=== PATIENT | male | born 1975 | race Two or more races ===

== ENCOUNTER 2018-07-21 20:03 | Emergency (ER) | payer MEDICAID ==
[~2018-07-21] VITALS: Ht 167.6 cm; Wt 66.7 kg
[2018-07-21 20:34] VITALS: BP 123/77
[2018-07-21] MEDS ORDERED: CEFTRIAXONE 500 MG VIAL IM ONE (21:00)
[2018-07-21] MEDS ORDERED: AZITHROMYCIN 250 MG TABLET PO ONE (21:00)
[2018-07-21] MEDS ORDERED: ONDANSETRON 4 MG TAB.RAPDIS SL ONE (21:00)
[2018-07-21] MEDS ORDERED: CEFTRIAXONE 500 MG VIAL ONE (21:10)
[2018-07-21] MEDS ORDERED: AZITHROMYCIN 250 MG TABLET ONE ×2 (21:10→21:38)
[2018-07-21] MEDS ORDERED: ONDANSETRON 4 MG TAB.RAPDIS ONE (21:11)
[2018-07-21] MEDS ORDERED: LIDOCAINE 1% INJ 50 ML MDV IJ ONE (21:12)
[2018-07-21 22:23] LABS: APPEARANCE,URINE Clear (CLEAR); BILIRUBIN,URINE Negative (NEGATIVE); BLOOD, URINE Negative Ery/uL (NEGATIVE); COLOR,URINE Yellow (YELLOW); KETONES,URINE Negative (NEGATIVE); LEUKOCYTE ESTERASE ,URINE Negative (NEGATIVE); NITRITE, URINE Negative (NEGATIVE); PROTEIN,URINE Negative (NEGATIVE); UGLUCOSE Negative (NEGATIVE); UROBILINOGEN,URINE 0.2 EU/dL (0.2)
--- NOTE | 2018-07-21 22:40 | NUR ---
Patient discharged to home in stable condition. Written and verbal after care instructions given. Patient verbalizes understanding of instruction.
== END 2018-07-21 22:43 | disposition home or self-care (01) ==
LOC: ER 20:06
DX: N45.1 Epididymitis (principal)
CPT/HCPCS: 81001; 87491; 87591; 96372; 99283; J0696; J3490; Q0162; 81000-TC

== ENCOUNTER 2020-02-23 19:39 | Emergency (ER) | payer MEDICAID ==
[~2020-02-23] VITALS: Ht 170.2 cm; Wt 65.8 kg
--- NOTE | 2020-02-23 20:15 | NUR ---
BIBS TO ER BED 6. AAOX4. NOT IN RESP DISTRESS. AMBULATORY. CAME IN FOR R EYE PAIN. PER PT, HE WAS CUTTING A PIECE OF CERAMIS TILE AND A PIECE WENT TO HIS EYE. VISUAL ACUITY DONE BOTH: 20/25, RIGHT: 20/25, LEFT:20/25. PROVIDER AT BEDSIDE FOR EVAL.
[2020-02-23] MEDS ORDERED: FLUORESCEIN SODIUM OPHTH 1 EA STRIP ONE (20:16)
[2020-02-23] MEDS ORDERED: IV NS 0.9% 1,000 ML BAG IV ONE (20:30)
--- NOTE | 2020-02-23 20:38 | NUR ---
PT ON [employer]DELL'S LENSE FOR EYE WASH WITH NS 1L.
--- NOTE | 2020-02-23 20:57 | NUR ---
Patient discharged to home in stable condition. Written and verbal after care instructions given. Patient verbalizes understanding of instruction. Pt ambulatory with a steady gait
[2020-02-23 20:59] VITALS: BP 115/63
== END 2020-02-23 20:57 | disposition home or self-care (01) ==
LOC: ER 19:42
DX: H57.11 Ocular pain, right eye (principal); H57.89 Other specified disorders of eye and adnexa
CPT/HCPCS: 99284; J7030

== ENCOUNTER 2021-10-09 20:03 | Inpatient (IN) | payer MEDICAID ==
[~2021-10-09] VITALS: Ht 177.8 cm; Wt 65.8 kg
--- NOTE | 2021-10-09 21:20 | NUR ---
TO ER BED 10. BIBSELF C/O LUQ (RIB PAIN) X2 WEEKS. +CHEST PAIN XMONTHS DIAGNOSED BONE INFLAMMATION BY URGENT CARE. RIB PAIN GETTING WORSE. PAIN IS 4/10 ON P/S. AAOX4. [place] SPEAKING. AMBULATORY. BREATHING IS EVEN AND UNLABORED. CONNECTED TO MONITOR. VSS.
[2021-10-09] MEDS ORDERED: ONDANSETRON HCL/PF 4 MG/2 ML VIAL ONE (22:23)
[2021-10-09] MEDS ORDERED: MORPHINE SULFATE INJ 4 MG/ML DISP.SYRIN ONE (22:23)
[2021-10-09] MEDS ORDERED: MORPHINE SULFATE INJ 2 MG/ML DISP.SYRIN IV ONE (22:30)
[2021-10-09] MEDS ORDERED: IV NS 0.9% 500 ML BAG IV ONE (22:30)
[2021-10-09] MEDS ORDERED: ONDANSETRON HCL/PF 4 MG/2 ML VIAL IVP ONE (22:30)
--- NOTE | 2021-10-09 22:37 | NUR ---
IV LINE ESTABLISHED RAC 18G , BLOOD COLLECTED AND SENT TO LAB
--- NOTE | 2021-10-09 22:37 | NUR ---
URINE COLLECTED AND SENT TO LAB
--- NOTE | 2021-10-09 22:59 | NUR ---
PT TAKEN FOR CT SCAN
[2021-10-09 23:08] LABS: BASOPHILS # (AUTO) 0.1 K/uL (0.0-0.2); BASOPHILS % (AUTO) 0.8 % (0.0-2.0); EOSINOPHILS % (AUTO) 1.9 % (0.0-6.0); HEMATOCRIT 41 % (39-51); HEMOGLOBIN 13.8 g/dL (13.5-17.5); LYMPHOCYTES # (AUTO) 2.2 K/uL (0.8-4.8); LYMPHOCYTES % (AUTO) 29.2 % (20.0-44.0); MEAN CORPUSCULAR HGB CONC 34 g/dl (31.0-36.0); MEAN CORPUSCULAR VOLUME 88 fL (80-96); MONOCYTES # (AUTO) 0.5 K/uL (0.1-1.30); MONOCYTES % (AUTO) 7.2 % (2.0-12.0); NEUTROPHILS # (AUTO) 4.6 K/uL (1.8-8.9); NEUTROPHILS % (AUTO) 60.9 % (43.0-81.0); PLATELET COUNT (AUTO) 263 K/uL (150-450); RED BLOOD CELL COUNT(AUTO) 4.61 MIL/uL (4.5-6.0); WHITE BLOOD COUNT (AUTO) 7.5 K/uL (4.3-11.0)
[2021-10-09 23:28] LABS: ALANINE AMINOTRANSFERASE 42 U/L (12-78); ALBUMIN 4.1 g/dL (3.4-5.0); ALKALINE PHOSPHATASE 74 U/L (46-116); ASPARTATE AMINOTRANSFERASE 27 U/L (15-37); BILIRUBIN,DIRECT 0.1 mg/dL (0.0-0.2); BILIRUBIN,TOTAL 0.3 mg/dL (0.2-1.0); CALCIUM, SERUM 9.1 mg/dL (8.5-10.1); CARBON DIOXIDE 30 mmol/L (21-32); CHLORIDE 103 mmol/L (98-107); CREATININE 0.8 mg/dL (0.6-1.3); GLUCOSE 91 mg/dL (74-106); LIPASE 126 U/L (73-393); POTASSIUM 3.6 mmol/L (3.5-5.1); SODIUM SERUM 139 mmol/L (136-145); TOTAL PROTEIN, SERUM 7.5 g/dL (6.4-8.2); UREA NITROGEN, BLOOD 12 mg/dL (7-18)
--- NOTE | 2021-10-10 00:37 | NUR ---
COVID ANTIGEN SWAB COLLECTED
[2021-10-10] MEDS ORDERED: ZOLPIDEM TARTRATE 5 MG TABLET PO PRN (01:00)
[2021-10-10] MEDS ORDERED: ONDANSETRON HCL/PF 4 MG/2 ML VIAL IVP PRN (01:00)
[2021-10-10] MEDS ORDERED: MAG HYDROX/AL HYDROX/SIMETH 30 ML UDC PO PRN (01:00)
[2021-10-10] MEDS ORDERED: ACETAMINOPHEN 325 MG TABLET PO PRN (01:00)
[2021-10-10] MEDS ORDERED: HYDROMORPHONE 1 MG/1 ML DISP.SYRIN IV PRN (01:00)
[2021-10-10] MEDS ORDERED: MAGNESIUM HYDROXIDE 30 ML UDC PO PRN (01:00)
[2021-10-10] MEDS ORDERED: Z GUARD REMEDY 4 OZ OINT TP PRN (01:00)
--- NOTE | 2021-10-10 01:20 | NUR ---
XRAY AT BEDSIDE
--- NOTE | 2021-10-10 02:11 | NUR ---
PT IS SLEEPING, EASILY AROUSABLE. WILL CONTINUE TO MONITOR
--- NOTE | 2021-10-10 03:54 | NUR ---
MS 324-2
--- NOTE | 2021-10-10 04:21 | NUR ---
REPORT GIVEN TO NENA ÁLVAREZ FOR ROBERT
[2021-10-10 04:45] VITALS: BP 134/73
--- NOTE | 2021-10-10 06:00 | NUR ---
MS RN CLOSING NOTES: PATIENT IN BED, AWAKE, A/O X4. NO S/S OF DISTRESS NOTED. NO COMPLAIN OF PAIN. CALL LIGHT WITHIN REACH. BED ALARM IN LOWEST AND LOCKED POSITION. NPO, PATIENT AWARE. WITH RIGHT NARE NGT CONNECTED TO LOW INTERMITTENT SUCTION, NO OUTPUT.
[2021-10-10] MEDS: IV NS 0.9% 1,000 ML IV PRN (06:09)
--- NOTE | 2021-10-10 07:42 | NUR ---
MS RN OPENING NOTES RECEIVED PATIENT IN BED, AWAKE, A/Ox4, ABLE TO MAKE NEEDS KNOWN. PATIENT ON ROOM AIR; NO S/SX OF RESPIRATORY DISTRESS NOTED. NO COMPLAINS OF PAIN. IV ACCESS IN RAC G #19. PATIENT NPO. NG-TUBE TO THE RIGHT NARIS PRESENT AND IN PLACE; NO OUTPUT AT THIS TIME. SAFETY PRECAUTIONS IN PLACE: BED IN LOW POSITION AND LOCKED, RAILS UP X2, CALL LIGHT WITHIN REACH. WILL CONTINUE TO MONITOR PATIENT.
[2021-10-10 08:00] VITALS: BP 112/62
--- NOTE | 2021-10-10 09:26 | NUR ---
MS RN NOTES MRSA SWAB NARES OBTAINED
--- NOTE | 2021-10-10 18:55 | NUR ---
MS RN CLOSING NOTES PATIENT REMAINS IN BED, AWAKE, A/Ox4, ABLE TO MAKE NEEDS KNOWN. PATIENT ON ROOM AIR; NO S/SX OF RESPIRATORY DISTRESS NOTED DURING THE DAY. NO COMPLAINS OF PAIN. IV ACCESS IN RAC G #18 RUNNING NS @ 90 MLS/HR. PATIENT NPO. NG-TUBE TO THE RIGHT NARIS PRESENT AND IN PLACE; WITH 200 MLS OUTPUT. ALL NEEDS ATTENDED DURING THE DAY. SAFETY PRECAUTIONS IN PLACE: BED IN LOW POSITION AND LOCKED, RAILS UP X2, CALL LIGHT WITHIN REACH. WILL ENDORSE TO CHOCOLATE DIPPER NURSE FOR ROBERT
[2021-10-10 20:00] VITALS: BP 116/71
[2021-10-11] MEDS: IV NS 0.9% 1,000 ML IV PRN (00:49)
--- NOTE | 2021-10-11 05:43 | NUR ---
END OF SHIFT REPORT Patient is A/O x4. Cooperative and compliant with treatment. IVF infusing, NPO. NGT to LCS, output 400 ml brown. On room air, in no respiratory distress. No c/o abdominal pain, denies N/V. Afebrile during the shift. Independent with mobility.
[2021-10-11 06:37] LABS: BASOPHILS % (AUTO) 0.4 % (0.0-2.0); EOSINOPHILS % (AUTO) 3.4 % (0.0-6.0); HEMATOCRIT 39 % (39-51); HEMOGLOBIN 13.4 g/dL (13.5-17.5); LYMPHOCYTES # (AUTO) 1.4 K/uL (0.8-4.8); LYMPHOCYTES % (AUTO) 17.7 % (20.0-44.0); MEAN CORPUSCULAR HGB CONC 34 g/dl (31.0-36.0); MEAN CORPUSCULAR VOLUME 89 fL (80-96); MONOCYTES # (AUTO) 0.6 K/uL (0.1-1.30); NEUTROPHILS # (AUTO) 5.6 K/uL (1.8-8.9); NEUTROPHILS % (AUTO) 70.5 % (43.0-81.0); PLATELET COUNT (AUTO) 234 K/uL (150-450); RED BLOOD CELL COUNT(AUTO) 4.44 MIL/uL (4.5-6.0); WHITE BLOOD COUNT (AUTO) 7.9 K/uL (4.3-11.0)
[2021-10-11 06:47] LABS: CALCIUM, SERUM 9.2 mg/dL (8.5-10.1); CREATININE 0.9 mg/dL (0.6-1.3); MAGNESIUM 1.9 mg/dL (1.8-2.4); PHOSPHORUS 3.4 mg/dL (2.5-4.9); POTASSIUM 3.8 mmol/L (3.5-5.1)
--- NOTE | 2021-10-11 07:40 | NUR ---
RN MS OPENING NOTES PATIENT RECEIVED IN BED & AWAKE, A/Ox4. NO S/SX OF RESPIRATORY DISTRESS OR C/O PAIN NOTED OR OBSERVED. IV ACCESS TO RFA REMAINS PATENT WITH NO S/SX OF INFILTRATION. NG-TUBE TO THE RIGHT NARES CONTINUES IN PLACE, HOWEVER WILL BE REMOVED ON SHIFT PER MD ORDER. NO OUTPUT OBSERVED AT THIS TIME. SAFETY PRECAUTIONS REMAIN IN PLACE WITH BED IN LOW POSITION AND LOCKED, RAILS UP X2, CALL LIGHT WITHIN REACH. WILL CONTINUE TO MONITOR.
--- NOTE | 2021-10-11 13:00 | NUR ---
RN NOTES PT IN BED, AWAKE, ALERT AND ORIENTED, DENIES PAIN, NOT IN DISTRESS, NO N/V NOTED, ABLE TO AMBULATE TO THE BATHROOM WITH STEADY GAIT, SEEN BY DR. FLOR MD CLEARED PT FOR DISCHARGE, STARTED ON FULL LIQUID DIET, TOLERATED WELL, PT SEEN BY DR. ZARAGOZA, DISCHARGE ORDER GIVEN, DISCHARGE AND MEDICATION INSTRUCTIONS GIVEN TO PT, VERBALIZED UNDERSTANDING, ALL BELONGINGS ACCOUNTED FOR, PICKED UP BY FAMILY MEMBER, LEFT IN STABLE CONDITION.
== END 2021-10-11 13:30 | disposition home or self-care (01) | DRG 249 ==
LOC: ER 20:06 → MED 10-10 04:00
PROVIDERS: ADMIT Student in an Organized Health Care Education/Training Program; ATTEND Student in an Organized Health Care Education/Training Program
DX: A08.4 Viral intestinal infection, unspecified (principal); K56.7 Ileus, unspecified; Z20.822 Contact with and (suspected) exposure to COVID-19; Z72.0 Tobacco use
CPT/HCPCS: 36415; 71045-TC; 74250-TC; 80048-TC; 80076-TC; 83690-TC; 83735-TC; 84100-TC; 84484-TC; 85025-TC; 85730-TC; 87081-TC; C9803; G0378; J2270; J2405; J7030

== ENCOUNTER 2022-08-08 13:36 | Emergency (ER) | payer MEDICAID ==
[~2022-08-08] VITALS: Ht 170.2 cm; Wt 63.5 kg
--- NOTE | 2022-08-08 13:40 | NUR ---
RECEIVED PT 47 YRS MALE CAME FROM [facility] BY [facility] C/O CHEST PAIN FOR 3 DAYS GOTING WORSE TODAY respiration spont and easy
--- NOTE | 2022-08-08 14:00 | NUR ---
Blood drow by lab tach
--- NOTE | 2022-08-08 14:30 | NUR ---
RESTING AND COMFORTABLE NO sob or discomfort toted
[2022-08-08 14:58] LABS: BASOPHILS % (AUTO) 0.4 % (0.0-2.0); EOSINOPHILS % (AUTO) 1.3 % (0.0-6.0); HEMATOCRIT 43 % (39-51); HEMOGLOBIN 14.3 g/dL (13.5-17.5); LYMPHOCYTES # (AUTO) 1.4 K/uL (0.8-4.8); LYMPHOCYTES % (AUTO) 17.8 % (20.0-44.0); MEAN CORPUSCULAR HGB CONC 33 g/dl (31.0-36.0); MEAN CORPUSCULAR VOLUME 88 fL (80-96); MONOCYTES # (AUTO) 0.6 K/uL (0.1-1.30); NEUTROPHILS # (AUTO) 5.7 K/uL (1.8-8.9); NEUTROPHILS % (AUTO) 72.5 % (43.0-81.0); PLATELET COUNT (AUTO) 308 K/uL (150-450); RED BLOOD CELL COUNT(AUTO) 4.94 MIL/uL (4.5-6.0); WHITE BLOOD COUNT (AUTO) 7.9 K/uL (4.3-11.0)
[2022-08-08 15:13] LABS: CALCIUM, SERUM 9.4 mg/dL (8.5-10.1); CARBON DIOXIDE 26 mmol/L (21-32); CHLORIDE 104 mmol/L (98-107); CREATININE 0.9 mg/dL (0.6-1.3); GLUCOSE 96 mg/dL (74-106); POTASSIUM 4.2 mmol/L (3.5-5.1); SODIUM SERUM 140 mmol/L (136-145); UREA NITROGEN, BLOOD 12 mg/dL (7-18)
[2022-08-08 15:19] LABS: ALANINE AMINOTRANSFERASE 31 U/L (12-78); ALKALINE PHOSPHATASE 79 U/L (46-116); ASPARTATE AMINOTRANSFERASE 25 U/L (15-37); BILIRUBIN,DIRECT 0.2 mg/dL (0.0-0.2); BILIRUBIN,TOTAL 0.6 mg/dL (0.2-1.0); TOTAL PROTEIN, SERUM 7.5 g/dL (6.4-8.2)
--- NOTE | 2022-08-08 15:45 | NUR ---
C XRAY DONE AT BED SIDE
[2022-08-08] MEDS ORDERED: KETOROLAC TROMETHAMINE INJ 30 MG/ML VIAL IV ONE (16:30)
[2022-08-08] MEDS ORDERED: KETOROLAC TROMETHAMINE INJ 30 MG/ML VIAL ONE (16:35)
--- NOTE | 2022-08-08 16:57 | NUR ---
Patient discharged to home in stable condition. Written and verbal after care instructions given. Patient verbalizes understanding of instruction.
[2022-08-08] MEDS ORDERED: KETOROLAC TROMETHAMINE INJ 60 MG/2 ML VIAL IM ONE (17:00)
[2022-08-08 17:07] VITALS: BP 120/75
== END 2022-08-08 17:08 | disposition home or self-care (01) ==
LOC: ER 13:47
DX: R07.89 Other chest pain (principal)
CPT/HCPCS: 99285; 71045; 96372; 93005; 85025; 80048; 80076; 36415; 84484; J1885

== ENCOUNTER 2023-07-03 18:10 | Emergency (ER) | payer BC, MEDICAID ==
[~2023-07-03] VITALS: Ht 170.2 cm; Wt 64.4 kg
[2023-07-03 18:24] VITALS: TEMP 98.1
[2023-07-03] MEDS: IV NS 0.9% 1,000 ML BAG IV ONE (19:37)
[2023-07-03] MEDS ORDERED: dexaMETHasone SOD PHOSPHATE 1 ML ONE (19:39)
[2023-07-03] MEDS ORDERED: diphenhydrAMINE HCL 50 MG/ML VIAL ONE (19:39)
[2023-07-03] MEDS ORDERED: ACETAMINOPHEN 325 MG TABLET ONE (19:40)
[2023-07-03] MEDS ORDERED: METOCLOPRAMIDE HCL 10 MG/2 ML VIAL ONE (19:40)
[2023-07-03] MEDS: METOCLOPRAMIDE HCL 10 MG/2 ML VIAL IV ONE (19:54)
[2023-07-03] MEDS: dexaMETHasone SOD PHOSPHATE 10 MG/ML VIAL IV ONE (19:54)
[2023-07-03] MEDS: ACETAMINOPHEN 325 MG TABLET PO ONE (19:54)
[2023-07-03] MEDS: diphenhydrAMINE HCL 50 MG/ML VIAL IV ONE (19:54)
[2023-07-03] MEDS ORDERED: IOHEXOL-350 100 ML VIAL IV ONE (21:02)
[2023-07-03] MEDS ORDERED: IV NS 0.9% 250 ML IV ONE (21:02)
[2023-07-03] MEDS ORDERED: CT SWABBABLE VALVE TRANS SET 1 EA INFUS.SET MC ONE (21:02)
[2023-07-03 22:56] VITALS: BP 124/81; O2SAT 100
== END 2023-07-03 22:56 | disposition home or self-care (01) ==
LOC: ER 18:11
DX: R51.9 Headache, unspecified (principal)
CPT/HCPCS: 99285; 70498; 96374; 96375; 96361; 70496; J1100; J1200; J2765; J7030; J7050; Q9967

== ENCOUNTER 2024-03-20 19:34 | Emergency (ER) | payer BC ==
[~2024-03-20] VITALS: Ht 170.2 cm; Wt 74.8 kg
[2024-03-20 21:52] VITALS: BP 134/70; TEMP 98.2; O2SAT 97
[2024-03-20] MEDS ORDERED: TDAP [DIPH/PERTUSSIS/TET] 0.5 ML VIAL IM ONE (22:07)
[2024-03-20] MEDS: TDAP [DIPH/PERTUSSIS/TET] 0.5 ML VIAL IM ONE (22:14)
== END 2024-03-20 22:47 | disposition home or self-care (01) ==
LOC: ER 19:37
DX: S61.217A Laceration without foreign body of left little finger without damage to nail, initial encounter (principal); W45.8XXA Other foreign body or object entering through skin, initial encounter; Y93.89 Activity, other specified; Y92.89 Other specified places as the place of occurrence of the external cause; Y99.8 Other external cause status
CPT/HCPCS: 90715

== ENCOUNTER 2024-07-15 11:48 | Emergency (ER) | payer BC ==
[~2024-07-15] VITALS: Ht 170.2 cm; Wt 62.6 kg
[2024-07-15 11:54] VITALS: BP 124/81; TEMP 98.2
[2024-07-15] MEDS ORDERED: METH-647 PO (12:04)
[2024-07-15] MEDS ORDERED: IBUP-1490 PO (12:04)
[2024-07-15] MEDS ORDERED: KETOROLAC TROMETHAMINE INJ 30 MG/ML VIAL ONE (12:05)
[2024-07-15] MEDS: KETOROLAC TROMETHAMINE INJ 30 MG/ML VIAL IM ONE (12:11)
[2024-07-15 12:16] VITALS: O2SAT 98
== END 2024-07-15 12:16 | disposition home or self-care (01) ==
LOC: ER 11:50
DX: M62.838 Other muscle spasm (principal); M54.2 Cervicalgia
CPT/HCPCS: 99283; 96372; J1885